=== PATIENT | female | born 2000 | race Caucasian/White ===

== ENCOUNTER 2020-09-14 06:41 | Emergency (ER) | payer SELFPAY ==
[~2020-09-14] VITALS: Ht 165.1 cm; Wt 83.9 kg
[2020-09-14] MEDS ORDERED: PREDNISONE50 MG PO (08:37)
[2020-09-14] MEDS ORDERED: ZITHROMAX250 MG PO (08:37)
== END 2020-09-14 09:00 | disposition home or self-care (01) ==
LOC: ED 06:41
DX: J45.909 Unspecified asthma, uncomplicated (principal); F17.200 Nicotine dependence, unspecified, uncomplicated; Z88.0 Allergy status to penicillin; Z88.1 Allergy status to other antibiotic agents